=== PATIENT | female | born 2000 | race Caucasian/White ===

== ENCOUNTER → 2023-05-16 14:51 | Outpatient (BNVA) | payer MEDICARE, MEDICAID, SELFPAY | PROVIDERS: Visit Provider Nurse Practitioner Family | DX: F32.A Depression, unspecified (principal); F95.2 Tourette's disorder; R55 Syncope and collapse; R42 Dizziness and giddiness | CPT/HCPCS: 80053; 84443; 85025 ==

== ENCOUNTER 2024-03-03 13:16 | Emergency (ER) | payer MEDICARE, MEDICAID, SELFPAY ==
--- NOTE | 2024-03-03 13:20 | XRR_ITS ---
PROCEDURE INFORMATION: Exam: XR Chest Exam date and time: 03/03/2024 2:01 PM Age: 24 years old Clinical indication: Cough and fever TECHNIQUE: Imaging protocol: Radiologic exam of the chest. Views: 1 view. COMPARISON: No relevant prior studies available. FINDINGS: Lungs: Unremarkable. No consolidation. Pleural spaces: Unremarkable. No pleural effusion. No pneumothorax. Heart/Mediastinum: Unremarkable. No cardiomegaly. Bones/joints: Unremarkable. XR/XR chest 1V portable [id number] IMPRESSION: No acute findings.
[2024-03-03 13:23] VITALS: BP 136/85; PULSE 124; RESP 20; TEMP 37.2; O2SAT 97
[2024-03-03 13:27] VITALS: O2SAT 97
--- NOTE | 2024-03-03 13:34 | W.ED.URI ---
HPI - URI/Sore Throat General: Chief Complaint: COVID symptoms Stated Complaint: cough, fever Time Seen by Provider: 03/03/24 13:35 Source: patient Mode of arrival: ambulatory Limitations: no limitations History of Present Illness: Patient is a 24-year-old female who presents to the emergency department today with a complaint of a cough, fevers, and a scratchy throat over the past 2 to 3 days. She states her cough is her most bothersome symptom. Denies any significant shortness of breath or difficulty breathing. She is an everyday smoker but states she quit 3 days ago she got sick. MD elicited complaint: fever, cough and sore throat Onset (ago): day(s) Consistency: constant Severity: mild Description of mucous: clear Able to tolerate fluids by mouth: Yes Exacerbating factors: nothing Relieving factors: nothing Associated symptoms: Reports fever(s); Deny abdominal pain, chills, chest pain, diarrhea, ear or mastoid pain, headache(s), nasal congestion, sinus pain or vomiting Treatments prior to arrival: none Related Data Previous Rx's Medication Instructions Recorded benzonatate 100 mg capsule 100 mg PO TID PRN cough #14 caps 03/03/24 methylprednisolone 4 mg tablets in See Rx Instructions PO .COMPLEX 03/03/24 a dose pack (Medrol (Casey)) #21 ea Allergies Allergy/AdvReac Type Severity Reaction Status Date / Time shellfish derived Allergy Severe ADR-Swelling Verified 05/16/23 13:42 of the Eye Review of Systems Const: Reports: fever(s); Denies: chills, body aches, fatigue or malaise ENMT: Reports: throat pain and odynophagia; Denies: ear or mastoid pain, nasal discharge, nasal congestion or sinus pain Card: Denies: chest pain Resp: Reports: non-productive cough and chest congestion; Denies: dyspnea, wheezing, pain on inspiration or hemoptysis GI: Denies: abdominal pain, vomiting or diarrhea Musc: Denies: neck pain, back pain, extremity pain, extremity swelling, joint pain or joint swelling Skin/Breast: Denies: rash Neuro: Denies: headache(s) or dizziness PFSH ED PFSH: Medical History Tourettes syndrome Depressed Anxiety Surgical History No significant past surgical history Family History Other Bipolar disorder Cancer Diabetes Heart disease Social History Smoking and tobacco/nicotine status: never used tobacco/nicotine Alcohol intake: never Substance/Drug Use: current Substance/Drug use frequency: daily Physical Exam Const: COMMON NORMALS: no acute distress, average body habitus, patient oriented x3, no limitations, healthy appearing, alert and well nourished GENERAL APPEARANCE: cooperative HENMT: HEAD & SCALP: normal to inspection FACE & SINUS: normal facial exam MOUTH: Normal oral and palatal mucosa present and lip normal THROAT: posterior oropharynx normal and tonsils normal Neck/C-Spine: COMMON NORMALS: no lymphadenopathy and no meningeal signs Chest: COMMONS NORMALS: normal inspection of the chest and normal palpation of entire chest wall Resp: COMMON NORMALS: normal respiratory effort and clear to auscultation bilaterally AUSCULTATION: clear to auscultation bilaterally Cardio: COMMON NORMALS: regular rhythm RATE: tachycardic RHYTHM: regular rhythm Neuro: COMMON NORMALS: patient oriented x3 SENSORIUM/ORIENTATION: Yes alert MENINGEAL SIGNS: Yes no meningeal signs Course Vital Signs: Vital signs: Vital Signs Temperature 99.0 F 03/03/24 13:23 Pulse Rate 108 H 03/03/24 13:55 Respiratory Rate 20 H 03/03/24 13:55 Blood Pressure 122/80 03/03/24 13:55 Pulse Oximetry 98 03/03/24 13:55 Oxygen Delivery Me thod Room Air 03/03/24 13:55 MDM - URI/Sore Throat Medical Decision Making Patient appears in no acute distress. Her CXR personal interpretation is unremarkable. COVID/flu/RSV is negative. Patient will be allowed discharge. She is requesting something to help with her cough. Return ED precautions given. Differential Diagnosis Likely upper respiratory infection, viral infection and bronchitis Medical Records I reviewed the patient's medical records. Lab Data I reviewed the patient's lab results. Laboratory Results HCG, Qual Negative (Negative) 03/03/24 13:44 Coronavirus (PCR) Negative (Negative) 03/03/24 13:29 Influenza A (PCR) Negative (Negative) 03/03/24 13:29 Influenza Type B (PCR) Negative (Negative) 03/03/24 13:29 RSV (PCR) Negative (Negative) 03/03/24 13:29 XR interpretation done by ED provider, pending radiology final review Discharge Plan Discharge Patient Disposition: Home Clinical Impression: Viral upper respiratory tract infection with cough Condition: Stable Prescriptions: New methylprednisolone [Medrol (Casey)] 4 mg tablets,dose pack See Rx Instructions .ROUTE .COMPLEX Qty: 21 0RF Rx Instructions: orally per package directions benzonatate 100 mg capsule 100 mg PO TID PRN (Reason: cough) Qty: 14 0RF Rx Instructions: Can take 1-2 tabs up to TID. Max 600mg/day. Discharge Orders: Discharge ED (Routine); Ordered 03/03/24 Ordered By: Patricia Cortez Patient Instructions: Upper Respiratory Infection (DC) Coding Level of Care Code ED [employer] Kiss Maker for Mickey Hugo
[2024-03-03 13:55] VITALS: BP 122/80; PULSE 108; RESP 20; O2SAT 98
[2024-03-03 13:55] LABS: HCG Qualitative Urine. Negative (Negative)
[2024-03-03 14:15] LABS: Covid PCR NEGATIVE (Negative); Influenza A NEGATIVE (Negative); Influenza B NEGATIVE (Negative); Respiratory Syncytial Virus Ce NEGATIVE (Negative)
[2024-03-03 14:43] VITALS: BP 116/70; PULSE 104; RESP 18; O2SAT 97
== END 2024-03-03 14:45 | disposition home or self-care (01) ==
PROVIDERS: Emergency Medicine; Emergency Provider Physician Assistant
DX: J06.9 Acute upper respiratory infection, unspecified (principal); Z11.52 Encounter for screening for COVID-19; Z72.0 Tobacco use
CPT/HCPCS: 0241U; 71045; 81025; 99284